=== PATIENT | male | born 1965 | race Caucasian/White ===

== ENCOUNTER 2016-10-26 09:36 | Emergency (ER) | payer OTHER ==
[2016-10-26 09:38] VITALS: BP 131/96
[2016-10-26] MEDS ORDERED: PRED50TA PO (09:56)
--- NOTE | 2016-10-26 10:46 | ED.ADGEN ---
Past History Past Medical History: No Pertinent History Past Surgical History: Other Alcohol Use: Rarely Drug Use: None Adult General HPI HPI Patient is a 51-year-old male presents emergency Department with a one-day history of right-sided facial numbness and weakness. Patient states that initially started yesterday afternoon feeling as if he had gone to the dentist and he received a "Novocain shot" today he has noticed more difficulty with smiling and raising his eyebrows. He denies any other complaints. Has no headache, visual or gait disturbances. Patient denies any other medical history. Denies any focal weakness. Review of Systems Review of Systems Constitutional: Denies fever or chills [] Eyes: Denies change in visual acuity, redness, or eye pain [] HENT: Denies nasal congestion or sore throat [] Respiratory: Denies cough or shortness of breath [] Cardiovascular: No additional information not addressed in HPI [] GI: Denies abdominal pain, nausea, vomiting, bloody stools or diarrhea [] : Denies dysuria or hematuria [] Musculoskeletal: Denies back pain or joint pain [] Integument: Denies rash or skin lesions [] Neurologic: Denies headache, focal weakness or sensory changes [] Endocrine: Denies polyuria or polydipsia [] Allergies Allergies Allergies Coded Allergies Type Severity Reaction Last Updated Verified No Known Drug Allergies 10/26/16 No Physical Exam Physical Exam Constitutional: Well developed, well nourished, no acute distress, non-toxic appearance. [] HENT: Normocephalic, atraumatic, bilateral external ears normal, oropharynx moist, no oral exudates, nose normal. [] Eyes: PERRLA, EOMI, conjunctiva normal, no discharge. [] Neck: Normal range of motion, no tenderness, supple, no stridor. [] Cardiovascular:Heart rate regular rhythm, no murmur [] Lungs & Thorax: Bilateral breath sounds clear to auscultation [] Abdomen: Bowel sounds normal, soft, no tenderness, no masses, no pulsatile masses. [] Skin: Warm, dry, no erythema, no rash. [] Extremities: No tenderness, no cyanosis, no clubbing, ROM intact, no edema. [] Neurologic: Alert and oriented X 3, right-sided facial droop with forehead paralysis, no other focal finding [] Psychologic: Affect normal, judgement normal, mood normal. [] Current Patient Data Vital Signs Vital Signs Date Time Temp Pulse Resp B/P Pulse Ox O2 Delivery O2 Flow Rate FiO2 10/26/16 09:38 98.5 90 18 97 Room Air EKG EKG [] Radiology/Procedures Radiology/Procedures [] Course & Med Decision Making Course & Med Decision Making Pertinent Labs and Imaging studies reviewed. (See chart for details) Patient was given a prescription for prednisone. He was instructed to follow-up with his physician early next week. He is return emergency Department sooner if he develops any new or worsening symptoms. [] Final Impression Final Impression Pantoja's palsy [] Problems: Dragon Disclaimer Dragon Disclaimer This electronic medical record was generated, in whole or in part, using a voice recognition dictation system. THOMPSON LOPEZ MD Oct 26, 2016 10:46
== END 2016-10-26 10:01 | disposition home or self-care (01) ==
LOC: ER 09:36
DX: G51.0 Bell's palsy (principal)
CPT/HCPCS: 99283